=== PATIENT | male | born 1955 | race Caucasian/White ===

== ENCOUNTER 2020-07-25 07:00 | Day surgery (SDC) | payer MEDICARE ==
[2020-07-25] MEDS ORDERED: Bupivacaine 0.5% 30 ML SDV ONE (07:11)
[2020-07-25] MEDS ORDERED: Povidone-Iodine 10% Soln 118.25 ML Bottle ONE (07:12)
[2020-07-25] MEDS ORDERED: Lactated Ringers 1,000 ML IV SCH (07:30)
[2020-07-25] MEDS ORDERED: Midazolam 1 MG/ML 2 ML SDV ONE (07:39)
[2020-07-25] MEDS ORDERED: Propofol 200 MG/20 ML SDV ONE ×2 (07:39→10:43)
[2020-07-25] MEDS ORDERED: fentaNYL 100 MCG/2 ML SDV ONE (07:39)
[2020-07-25] MEDS: Nozin Nasal Sanitizer NASBOTH SCH ×2 (08:22→20:45)
[2020-07-25] MEDS: ceFAZolin 2 GM in Premix Bag 1 BAG IV ONE ×3 (09:55→15:39)
[2020-07-25] MEDS ORDERED: Sodium Chloride 0.9% 10 ML ONE (10:18)
[2020-07-25] MEDS ORDERED: ePHEDrine 50 MG/ML SDV ONE (10:18)
[2020-07-25] MEDS: Tranexamic Acid 1,000 MG in Sodium Chloride 0.9% 50 ML IV ONE ×3 (10:20→15:39)
[2020-07-25] MEDS ORDERED: Lactated Ringers 1,000 ML ONE (10:44)
[2020-07-25] MEDS ORDERED: Morphine 2 MG/ML SYRINGE IVPUSH PRN (11:33)
[2020-07-25] MEDS ORDERED: Magnesium Hydroxide 400 MG/5 ML Susp 30 ML Cup PO PRN (11:33)
[2020-07-25] MEDS ORDERED: Nitroglycerin 0.4 MG Tab.SL SL PRN (11:42)
[2020-07-25] MEDS ORDERED: Sodium Chloride 0.9% 1,000 ML IV SCH (11:45)
--- NOTE | 2020-07-25 12:10 | CRLCR ---
INDICATION: post of left knee arthroplasty HISTORY: Postoperative evaluation. COMPARISON: 04/19/2020. TECHNIQUE: Left knee, 2 portable views. FINDINGS: There are postoperative changes of a left knee medial compartment hemiarthroplasty. There is no radiographic evidence for complication. Degenerative changes in the lateral compartment are stable. There is no lytic or blastic bone lesion. IMPRESSION: 1. New postoperative changes of a left knee medial compartment hemiarthroplasty. 2. No radiographic evidence for complication. Dictated by Victor Manuel Gordon MD @ 07/25/2020 12:09:53 PM Dictated by: Victor Manuel Gordon MD @ 07/25/2020 12:10:02 (Electronically Signed)
[2020-07-25] MEDS: Ketorolac 30 MG/ML SDV IVPUSH SCH ×2 (13:32→20:44)
[2020-07-25] MEDS: Acetaminophen/oxyCODONE 325-5 MG Tab PO PRN ×3 (13:32→21:51)
[2020-07-25] MEDS: ceFAZolin 1 GM in Premix Bag 1 BAG IV SCH (16:10)
[2020-07-25] MEDS ORDERED: diphenhydrAMINE 25 MG Cap PO PRN (17:23)
[2020-07-25] MEDS: Docusate Sodium 100 MG Cap PO SCH (20:44)
[2020-07-25] MEDS: Pregabalin 75 MG Cap PO SCH (20:45)
[2020-07-25] MEDS: Metoprolol Tartrate 50 MG Tab PO SCH (20:45)
[2020-07-25] MEDS ORDERED: Nozin Nasal Sanitizer NASBOTH SCH (21:00)
[2020-07-26] MEDS: Acetaminophen/HYDROcodone 325-5 MG Tab PO PRN ×3 (00:50→08:52)
[2020-07-26] MEDS: ceFAZolin 1 GM in Premix Bag 1 BAG IV SCH ×2 (00:51→09:21)
[2020-07-26] MEDS: Ketorolac 30 MG/ML SDV IVPUSH SCH (05:39)
[2020-07-26 07:09] VITALS: BP 110/63; PULSE 70
[2020-07-26] MEDS ORDERED: Pantoprazole 40 MG Tab.CR PO SCH (07:30)
[2020-07-26] MEDS: Nozin Nasal Sanitizer NASBOTH SCH (08:40)
[2020-07-26] MEDS: Docusate Sodium 100 MG Cap PO SCH (08:43)
[2020-07-26] MEDS: Metoprolol Tartrate 50 MG Tab PO SCH (08:44)
[2020-07-26] MEDS ORDERED: Pregabalin 75 MG Cap ONE (08:49)
[2020-07-26] MEDS: Pregabalin 75 MG Cap PO SCH (08:52)
[2020-07-26] MEDS ORDERED: Enoxaparin 30 MG/0.3 ML Syringe SUBCUT SCH (09:00)
[2020-07-26] MEDS ORDERED: Ondansetron 4 MG Tab.DIS PO PRN (09:00)
[2020-07-26] MEDS ORDERED: Cholecalciferol (Vitamin D3) 25 MCG Tab PO SCH (09:00)
[2020-07-26] MEDS ORDERED: Aspirin 325 MG Tab.EC PO SCH (09:00)
[2020-07-26] MEDS ORDERED: Folic Acid 1 MG Tab PO SCH (09:00)
[2020-07-26] MEDS ORDERED: Loratadine 10 MG Tab PO SCH (09:00)
[2020-07-26] MEDS ORDERED: Rosuvastatin 10 MG Tab PO SCH (09:00)
--- NOTE | 2020-08-08 17:11 | OR ---
DATE OF PROCEDURE: 07/25/2020 SURGEON: Felipe Encinas MD PREOPERATIVE DIAGNOSIS: Osteoarthritis, left knee. POSTOPERATIVE DIAGNOSIS: Osteoarthritis, left knee, medial compartment. PROCEDURE: Left medial unicompartmental arthroplasty utilizing [employer] ZUK components with a size E femur, 5 tibia, and 8 mm polyethylene. ANESTHESIA: Spinal with sedation. INDICATIONS: [place] is a 64-year-old gentleman with a history of progressive pain in the left knee. Examination and imaging are consistent with medial unicompartmental arthroplasty with collapse. Presents for medial unicompartmental arthroplasty, possible total knee arthroplasty. Risks, benefits, potential complications of the procedure were discussed. PROCEDURE IN DETAIL: After adequate anesthesia was obtained, patient was placed supine with a tourniquet about the left upper thigh. Left leg was prepped and draped in a sterile fashion. Leg was exsanguinated and tourniquet inflated to 300 mmHg. Anterior incision made just medial of midline, carried down through the subcutaneous tissues from the superior pole of the patella to the tibial tubercle. A medial parapatellar arthrotomy was performed. The anterior horn of the medial meniscus was excised. Medial compartment shows significant degenerative changes with articular cartilage loss. The patellofemoral joint shows minimal DJD with only minor chondromalacia. A decision was made to proceed with a medial unicompartmental arthroplasty. Knee was flexed and the anterior lip of the tibial plateau was resected with an oscillating saw. The knee was extended and the extramedullary alignment jig was placed. This was aligned and secured to the distal femur and tibia. Distal femoral cut was made. This portion of the guide was removed. The knee was flexed and the proximal tibia was then resected. The remaining guide was removed and the medial meniscus was excised. The femur was then sized to an E component. The cutting guide was secured to the distal femur. Peg holes were drilled and remaining cuts were made with an oscillating saw. The tibia was sized to a #5 component. #5 baseplate was tapped into position, secured with small pin and peg holes were drilled. Trial reduction was then done with an 8 mm insert, which provided very good balance in flexion and extension. The trials were removed and the knee was thoroughly irrigated with the pulse lavage. Bone surfaces were dried. Components were cemented in place. Excess cement was removed. The knee was held in full extension with an 8 mm trial insert and the 2 mm spacer as the cement cured. Knee was again taken through range of motion and showed good balance with 2 mm of play in both flexion and extension and full extension obtained. The trial insert was removed. The knee was irrigated and the final polyethylene was snapped into position. The knee was irrigated with a dilute Betadine solution followed by pulse lavage. Knee was closed with #2 Ethibond in a running fashion in the capsule, 2-0 Vicryl and a running 3-0 Monocryl on the skin. Steri-Strips were applied. Sterile dressing was then placed with a light compressive dressing. The patient tolerated the procedure well. There were no complications. Taken from the operating room in stable condition. Felipe Encinas MD /[id number]
--- NOTE | 2020-08-10 15:59 | PCM.DCSUM1 ---
Discharge Summary - Hospital Course HPI Initial Comments: 64 year old male admitted for unicompartmental arthroplasty of the knee. Diagnosis: Stroke: No Modified Sharp Scale: No Symptoms at All Modified Barbi Scale Score: 0 - Discharge Data Discharge Date: 07/26/20 Discharge Disposition: Home, Self-Care 01 Condition: Good - Referral to Home Health Date of Face to Face Encounter: 07/26/20 Primary Care Physician: Felipe Douglas Sr, MD - Discharge Diagnosis/Problem(s) (1) Status post left partial knee replacement SNOMED Code(s): 598397053, [id number], [id number], [id number] ICD Code: Z96.652 - PRESENCE OF LEFT ARTIFICIAL KNEE JOINT Status: Acute - Patient Summary/Data Operative Procedure(s) Performed: Left medial unicompartmental arthroplasty Complications: None Consults: Consultations 07/25/20 11:33 OT Evaluation and Treatment [CONS] Routine Please Evaluate and Treat. OT Reason for Consult: ADL's This query below is only for informational purposes and is not editable. 07/25/20 11:34 Consult to Case Management/City Engineer [CONS] Routine Comment: Physician Instructions: Service(s) to be Consulted: Case Management Reason for Consult: Plan for Discharge PT Evaluation and Treatment [CONS] Routine Please Evaluate and Treat. PT Reason for Consult: Post op Ortho Surgery Special Instructions: WBAT This query below is only for informational purposes and is not editable. PT Evaluation and Treatment [CONS] Routine Please Evaluate and Treat. PT Reason for Consult: Post op Ortho Surgery Knee Pending Discharge: Yes, 1- 2 days Special Instructions: Schedule first outpatient PT appointment in 3-5 day post discharge. This query below is only for informational purposes and is not editable. Hospital Course: Tolerated procedure without complications. Did very well with mobilization and was up in halls the afternoon of surgery. Met all goals with PT and was tolerating po pain medications. Surgical site with no drainage or complications. Discharged to home, follow up in Ortho Clinic in 2 weeks. - Patient Instructions Diet: Usual Diet as Tolerated Activity: Apply Ice, Full Weight Bearing Showering/Bathing: Shower in AM Wound/Incision Care: Keep Operative Site/Wound Site Clean and Dry Notify Provider of: Fever, Increased Pain, Swelling and Redness, Drainage, Nausea and/or Vomiting - Discharge Plan *PRESCRIPTION DRUG MONITORING PROGRAM REVIEWED*: No *COPY OF PRESCRIPTION DRUG MONITORING REPORT IN PATIENT FERMÍN: No Home Medications: Home Meds Aspirin [Halfprin] 325 mg PO DAILY 01/12/15 [History] Cholecalciferol (Vitamin D3) [Vitamin D3] 1,000 unit PO DAILY 01/12/15 [History] Metoprolol Tartrate 25 mg PO BID 01/12/15 [History] Quinapril HCl 20 mg PO DAILY 01/12/15 [History] Rosuvastatin [Crestor] 2.5 mg PO DAILY 01/12/15 [History] tadalafiL [Cialis] 5 mg PO DAILY PRN 01/12/15 [History] Folic Acid 0.8 mg PO DAILY 04/04/20 [History] Multivit-Min/FA/Lycopen/Lutein [Centrum Silver Men Tablet] 1 tab PO DAILY 04/04/20 [History] Nitroglycerin 0.4 mg PO ASDIRECTED PRN 04/04/20 [History] Pregabalin [Lyrica] 150 mg PO BID 06/21/20 [History] Fexofenadine [Muriel] 180 mg PO DAILY 07/25/20 [History] Lansoprazole 15 mg PO DAILY 07/25/20 [History] Oxygen Therapy Mode: Room Air Patient Handouts: Preventing Constipation After Surgery, Partial Knee Replacement, Care After Referrals: Felipe Encinas MD [Physician] - 08/09/20 1:15 pm (Rumsey at hospital desk 15 minutes prior to appointment) - Discharge Summary/Plan Comment DC Time >30 min.: No - Patient Data Vitals - Most Recent: Last Vital Signs Temp 35.3 C L 07/26/20 07:08 Pulse 70 07/26/20 08:44 Resp 16 07/26/20 07:08 BP 110/63 07/26/20 08:44 Pulse Ox 96 07/26/20 07:08 Weight - Most Recent: 108.862 kg Med Orders - Current: Current Medications Discontinued Medications Hydrocodone Bitart/Acetaminophen ([place] 325-5 Mg) 2 tab PO Q4H PRN PRN Reason: Pain (mild 1-3) Last Admin: 07/26/20 08:52 Dose: 1 tab Documented by: Aspirin (Ecotrin) 325 mg PO DAILY [place] Last Admin: 07/26/20 08:43 Dose: 325 mg Documented by: Bandage/Support Products ( Nasal Thermoforming Machine Operator) 1 applic NASBOTH BID [facility] Stop: 07/31/20 21:01 Last Admin: 07/26/20 08:40 Dose: 1 applic Documented by: Bupivacaine HCl (Marcaine 0.5%) Confirm Administered Dose 30 ml .ROUTE .STK-MED ONE Stop: 07/25/20 07:12 Cholecalciferol (Vitamin D3) 25 mcg PO DAILY [facility] Last Admin: 07/26/20 08:45 Dose: 25 mcg Documented by: Diphenhydramine HCl (Benadryl) 50 mg PO BEDTIME PRN PRN Reason: Sleep Docusate Sodium (Colace) 100 mg PO BID [facility] Last Admin: 07/26/20 08:43 Dose: 100 mg Documented by: Enoxaparin Sodium (Lovenox) 30 mg SUBCUT DAILY [facility] Last Admin: 07/26/20 08:45 Dose: 30 mg Documented by: Ephedrine Sulfate (Ephedrine Sulfate) Confirm Administered Dose 50 mg .ROUTE .STK-MED ONE Stop: 07/25/20 10:19 Fentanyl (Sublimaze) Confirm Administered Dose 100 mcg .ROUTE .STK-MED ONE Stop: 07/25/20 07:40 Folic Acid (Folic Acid) 1 mg PO DAILY [facility] Last Admin: 07/26/20 08:44 Dose: 1 mg Documented by: Lactated Ringer's (Ringers, Lactated) 1,000 mls @ 75 mls/hr IV ASDIRECTED [facility] Last Admin: 07/25/20 08:43 Dose: 75 mls/hr Documented by: Cefazolin Sodium/Dextrose 2 gm (/ Premix) 50 mls @ 100 mls/hr IV ONETIME ONE Stop: 07/25/20 08:59 Last Admin: 07/25/20 15:39 Dose: Not Given Documented by: Tranexamic Acid 1,000 mg/ (Sodium Chloride) 60 mls @ 240 mls/hr IV ONETIME ONE Stop: 07/25/20 08:59 Last Admin: 07/25/20 15:39 Dose: Not Given Documented by: Sodium Chloride (Normal Saline) Confirm Administered Dose 10 mls @ as directed .ROUTE .STK-MED ONE Stop: 07/25/20 10:19 Lactated Ringer's (Ringers, Lactated) Confirm Administered Dose 1,000 mls @ as directed .ROUTE .STK-MED ONE Stop: 07/25/20 10:45 Sodium Chloride (Normal Saline) 1,000 mls @ 125 mls/hr IV ASDIRECTED [facility] Last Admin: 07/25/20 16:06 Dose: 125 mls/hr Documented by: Cefazolin Sodium/Dextrose 1 gm (/ Premix) 50 mls @ 100 mls/hr IV Q8H [facility] Stop: 07/26/20 09:29 Last Admin: 07/26/20 09:21 Dose: 100 mls/hr Documented by: Ketorolac Tromethamine (Toradol) 30 mg IVPUSH Q8H [facility] Stop: 07/26/20 21:01 Last Admin: 07/26/20 05:39 Dose: Not Given Documented by: Loratadine (Claritin) 10 mg PO DAILY [facility] Last Admin: 07/26/20 08:42 Dose: 10 mg Documented by: Magnesium Hydroxide (Milk Of Magnesia) 30 ml PO BID PRN PRN Reason: Constipation Metoprolol Tartrate (Lopressor) 50 mg PO BID [facility] Last Admin: 07/26/20 08:44 Dose: 25 mg Documented by: Midazolam HCl (Versed 1 Mg/Ml) Confirm Administered Dose 2 mg .ROUTE .STK-MED ONE Stop: 07/25/20 07:40 Morphine Sulfate (Morphine) 2 mg IVPUSH Q1H PRN PRN Reason: Breakthrough Pain Nitroglycerin (Nitrostat) 0.4 mg SL ASDIRECTED PRN PRN Reason: Other Ondansetron HCl (Zofran Odt) 4 mg PO Q4H PRN PRN Reason: Nausea/Vomiting Last Admin: 07/26/20 09:52 Dose: 4 mg Documented by: Oxycodone/Acetaminophen (Percocet 325-5 Mg) 1 - 2 tab PO Q4H PRN PRN Reason: Pain (moderate 4-6) Last Admin: 07/25/20 21:51 Dose: 1 tab Documented by: Pantoprazole Sodium (Protonix) 40 mg PO ACBREAKFAST [facility] Last Admin: 07/26/20 07:02 Dose: 40 mg Documented by: Povidone Iodine (Betadine 10% Soln) Confirm Administered Dose 1 ml .ROUTE .STK- MED ONE Stop: 07/25/20 07:13 Last Admin: 07/25/20 11:05 Dose: 1 ml Documented by: Pregabalin (Lyrica) 150 mg PO BID [facility] Last Admin: 07/26/20 08:52 Dose: 150 mg Documented by: Pregabalin (Lyrica) Confirm Administered Dose 75 mg .ROUTE .STK-MED ONE Stop: 07/26/20 08:50 Last Admin: 07/26/20 08:58 Dose: Not Given Documented by: Propofol (Diprivan 20 Ml) Confirm Administered Dose 200 mg .ROUTE .STK-MED ONE Stop: 07/25/20 07:40 Propofol (Diprivan 20 Ml) Confirm Administered Dose 200 mg .ROUTE .STK-MED ONE Stop: 07/25/20 10:44 Quinapril HCl (Accupril) 20 mg PO DAILY [facility] Last Admin: 07/26/20 08:41 Dose: 20 mg Documented by: Rosuvastatin Calcium (Crestor) 2.5 mg PO DAILY [facility] Last Admin: 07/26/20 08:43 Dose: 2.5 mg Documented by:
== END 2020-07-26 10:30 | disposition home or self-care (01) ==
LOC: JP.SDS 07:00 → JP.MS 11:34 → JP.SDS 07-26 10:30
PROVIDERS: ATTEND Specialist
DX: M17.12 Unilateral primary osteoarthritis, left knee (principal); G62.9 Polyneuropathy, unspecified; I10 Essential (primary) hypertension; E78.5 Hyperlipidemia, unspecified; F17.210 Nicotine dependence, cigarettes, uncomplicated; I25.10 Atherosclerotic heart disease of native coronary artery without angina pectoris; Z98.890 Other specified postprocedural states; Z79.899 Other long term (current) drug therapy; Z88.8 Allergy status to other drugs, medicaments and biological substances; Z79.82 Long term (current) use of aspirin
CPT/HCPCS: 27446; 36415; 73560; 86850; 86900; 86901; 97110; 97116; 97161; 97165; 97530; A9270; C1713; C1776; J0690; J1650; J1885; J2250; J2704; J3010; J7030; J7120; J3490

== ENCOUNTER 2022-11-05 06:24 | Day surgery (SDC) | payer MEDICARE ==
[2022-11-05] MEDS ORDERED: Sodium Chloride 0.9% 1,000 ML IV SCH (07:00)
[2022-11-05] MEDS ORDERED: fentaNYL 50 MCG/ML SDV ONE (07:11)
[2022-11-05] MEDS ORDERED: Propofol 200 MG/20 ML SDV ONE (07:11)
[2022-11-05] MEDS ORDERED: Midazolam 1 MG/ML 2 ML SDV ONE (07:11)
[2022-11-05 09:19] VITALS: BP 98/69; PULSE 61
== END 2022-11-05 09:25 | disposition home or self-care (01) ==
LOC: JP.SDS 06:24
PROVIDERS: ATTEND Internal Medicine
DX: K63.5 Polyp of colon (principal); K62.89 Other specified diseases of anus and rectum; I10 Essential (primary) hypertension; E78.5 Hyperlipidemia, unspecified; I25.10 Atherosclerotic heart disease of native coronary artery without angina pectoris; Z88.8 Allergy status to other drugs, medicaments and biological substances; Z85.46 Personal history of malignant neoplasm of prostate
CPT/HCPCS: 45380; 88305; J2250; J2704; J3010; J7030